=== PATIENT | male | born 1965 | race Caucasian/White ===

== ENCOUNTER → 2023-01-21 10:01 | Outpatient (REF) | payer OTHER, SELFPAY | LOC: RAD 10:01 | PROVIDERS: ATTENDING PHYSICIAN General Practice | DX: K50.019 Crohn's disease of small intestine with unspecified complications (principal) | CPT/HCPCS: 74177; Q9967 ==

== ENCOUNTER 2023-04-20 12:11 | Emergency (ER) | payer SELFPAY ==
[2023-04-20 12:18] VITALS: BP 179/100; BMI 28.3
[2023-04-20 13:27] LABS: Amphetamines Negative (Negative); Barbiturates Negative (Negative); Benzodiazepines Negative (Negative); Buprenorphine Negative (Negative); Cocaine Negative (Negative); Marijuana Negative (Negative); Methadone Negative (Negative); Methamphetamines Negative (Negative); Opiates Negative (Negative); Phencyclidine Negative (Negative); Tricyclic Antidepressants Negative (Negative)
[2023-04-20] MEDS: LYRICA 200 MG PO ×2 (14:00→22:08)
--- NOTE | 2023-04-20 14:22 | CON.MD ---
Addendum entered and electronically signed by Lien Metz MD 04/20/23 16:20:
addendum to medical hx received information re patient medications from [facility]. he takes tegretol 200 mg bid for neuropathy. folic acid one mg q day latanoprost o.oo5 % one drop right eye q hs loratadine 10 mg daily lyrica 100 mg two tid for
neuropathy pantoprazole 20 mg q day tamsulosin o.4 mg bid tramadol 50 mg two tabs tid prn pain artificial tears . had been on prednisone but no longer taking it for crohn's other prn's astelin artificial tears zoloft dose of 125 given
continuation of depression will increase to 150 mg
Addendum entered and electronically signed by Lien Metz MD 04/20/23 14:32:
asked staff to get a copy of meds from [facility].
Original Note:
Consultation - Medical
-
patient seen chart reviewed. patient is a 57 year old male known to me from previous admissions. he comes to today on a 302 petition filed bc upon release from [facility] he said he would hang himself. he continues to say he will 'perez myselr'.
he is depressed. he has struggled w several serious medical illnesses. he was in [facility] for about 22 months bc violation of probation. he had charges pertaining to possession of firearms, terroristic threats, resisting arrest etc. he said he was
assured by the top lift compresser who presided over his hearing that he would be released to a 'place'. this did not happen he was dc'ed to the street. he has no place to live. sleep is not great. appetite is fair. there is nothing to suggest psychosis. patient
was taking zoloft. he does not know the dose.
past psych hx patient was hospitalized in the past. please see my note of 04/30/21 for details. he was last at [facility] he has taken several psychotropics in the past. he feels zoloft was helpful last time he was here was bc of an
overdose in a motel after he was dc'ed from [place] to said residence.
medical hx patient w hx spine surgeries and chronic pain. he has difficulty breathing bc spinal deformity. he can barely walk. he has hx of crohn's w complications in the past requiring bowel resection. patient w osteoporosis foot drop. i noted
in my last note hx of hip surgery which he says is not accurate.
social hx has a mother locally. otherwise few friends or supports. patient currently is homeless long legal hx
substance abuse denied said he has hx of substance abuse in the past but none in several ears
family hx non contributory
mse alert ox3 cooperative and given the circumstances pleasant. speech and thought process normal. mood is depressed affect ok thoughts of suicide via hanging aver intelligence memory ok insight judgment poor
dx unspecified depression
plan uphold 302. patient could go voluntarily if we can locate such a bed. restart zoloft 50 mg q day ativan one mg po prn agitation anxiety
[2023-04-20 14:36] LABS: % Basophils 0.6 % (0-2); % Eosinophils 0.4 % (0-6); % Immature Granulocytes 0.2 % (0-0.5); % Lymphocytes 22.1 % (20.5-51.1); % Monocytes 4.7 % (1.7-9.3); Absolute Lymphocytes 1.1 10^3/uL (1.2-3.4); Absolute Monocytes 0.2 10^3/uL (0.1-0.6); Absolute Neutrophils 3.7 10^3/uL (1.4-6.5); Hematocrit 37.8 % (39.0-52.0); Mean Corp Hgb Conc. 34.4 g/dL (33.0-37.0); Mean Corpuscular Hgb 28.5 pg (27.0-31.0); Mean Corpuscular Volume 82.9 fL (80.0-94.0); Mean Platelet Volume 10.6 fL (7.4-10.4); Nucleated Red Blood Cells % 0 % (-); Platelet Count 214 10^3/uL (130-400); Red Blood Cell Count 4.56 10^6/uL (4.70-6.10); Red Cell Dist. Width 13.9 % (11.5-14.5); White Blood Cell Count 5.1 10^3/uL (4.8-10.8)
[2023-04-20 14:51] LABS: COVID-19 Antigen Negative (Negative)
[2023-04-20 14:57] LABS: ALT (SGPT) 13 U/L (0-50); AST (SGOT) 29 U/L (17-59); Albumin 3.7 g/dl (3.5-5.0); Alkaline Phosphatase 108 U/L (38-126); Blood Urea Nitrogen 14 mg/dl (9-20); Carbon Dioxide 26 mmol/L (22-30); Chloride 105 mmol/L (98-107); Estimated Creatinine Clearance 85 ml/min; Glucose 102 mg/dl (70-99); Sodium 136 mmol/L (135-145); Total Bilirubin 0.7 mg/dl (0.2-1.3); Total Protein 6.4 g/dl (6.3-8.2); eGFR > 60.00
[2023-04-20 15:03] LABS: Alcohol None Detected
--- NOTE | 2023-04-20 15:23 | ED.GENMED ---
History of Present Illness
General
Chief Complaint: Crisis Evaluation
Source: patient
Exam Limitations: none
Time Seen by Provider: 04/20/23 12:37
Nursing documentation reviewed up to this point in time: agreed with
Travel History
Have you had any contact with someone who has COVID-19?: No
Do you have any symptoms of coronavirus? Fever > 100 degrees, chills, cough, shortness of breath, sore throat, loss of taste or smell, muscle aches, or headache?: No
History of Present Illness
History of Present Illness:
The patient is a 57-year-old man who reports that he was just released from senior care after 2 years prior to arrival. Patient reports that when he was being released from senior care, he threatened to hang himself because he reports that his life is not
worth living. He reports he has no social support. He reports he has no friends or family. Patient reports that he has a history of overdose and suicide attempt in the past. Patient reports that he is still feeling suicidal. Patient complains
of chronic bilateral foot pain due to neuropathy and states he is due for his Lyrica. He denies drugs and alcohol. He reports he is a former smoker but quit.
Past History
Past History
ED Past Medical History: Psychiatric, Other (Lumbar epidural abscess February 2015, avascular necrosis of the hips, perianal fistula, osteoporosis, gluteal fistula) and Other (Crohn's disease, chronic back pain on the left foot drop, narcotic
dependent. Opiate use disorder.)
ED Past Surgical History: Bowel resection (X2 for Crohn's), Orthopedic (hip replacement, lumbar epidural abscess evacuation with discectomy T10-L3.) and Other (fistula surgery)
Social History
Tobacco: Former smoker
Alcohol: None
Drug: None
Personal: Single
Living: with family
Employment: Disabled
Family History
Family History: Other (Father with lung cancer)
Review of Systems
Review of Systems
Allergies reviewed?: Yes
All Other Systems: ROS reviewed and negative except as documented in HPI and ROS
Constitutional: Reports no symptoms
EENT: Reports no symptoms
Respiratory: Reports no symptoms
Cardiac: Reports no symptoms
ABD/GI: Reports no symptoms
: Reports no symptoms
Musculoskeletal: Reports muscle pain (Bilateral foot pain) and back pain (Chronic back pain)
Skin: Reports no symptoms
Neurological: Reports no symptoms
Endocrine: Reports no symptoms
Hematologic/Lymphatic: Reports no symptoms
Psychiatric: Reports no symptoms
Phy Exam
Physical Exam
Physical Exam:
Physical Exam
General: no apparent distress, not acutely ill
Neck: supple. no meningeal signs. normal posterior pharynx
Heart: s1/s2 regular rate and rhythm, no murmur. equal radial pulses.
Lungs: no acute respiratory distress. clear bilaterally
Abdomen: normal bowel sounds. not tender. no CVAT
Neuro: alert and oriented. no focal neurological deficits
Skin: no rash
Psychiatric: well kept. interactive and cooperative
Extremities: no edema. no calf tenderness. negative homans. good distal pulses
Course
Orders/Labs/Results
Orders:
Orders
04/20/23 12:17
Case Management Consult ONCE
Case Management Consult: Suicide Risk
04/20/23 13:01
Urine Drug Abuse Screen Urgent
Date Specimen was Collected: 04/20/23
Time Specimen was Collected: 12:21
04/20/23 13:09
Pregabalin [Lyrica] 200 mg PO NOW STA
04/20/23 13:10
Crisis Consult Urgent
Reason for Consult: suicidal thoughts
04/20/23 14:28
Alcohol Urgent
COVID-19 Antigen Urgent
Source: Nasal Swab
Complete Blood Count/With Diff Urgent
Comprehensive Metabolic Panel Urgent
04/20/23 14:30
Lorazepam [Ativan] 1 mg PO Q8HPRN PRN
04/20/23 18:00
Latanoprost [Xalatan Ophthalmic Solution] See Dose Instructions OPHTH QPM
04/20/23 20:00
Carbamazepine [Tegretol] 200 mg PO BID
Tamsulosin [Flomax] 0.4 mg PO BID
04/20/23 22:00
Pregabalin [Lyrica] 200 mg PO TID
04/21/23 08:00
Loratadine [Claritin] 10 mg PO DAILY
Pantoprazole [Protonix] 40 mg PO DAILY
Sertraline HCl [Zoloft] 150 mg PO DAILY
Sertraline HCl [Zoloft] 50 mg PO DAILY
Abnormal Lab Results
04/20/23
14:28
RBC 4.56 L 10^6/uL
(4.70-6.10)
Hct 37.8 L %
(39.0-52.0)
MPV 10.6 H fL
(7.4-10.4)
Absolute Lymphs (auto) 1.1 L 10^3/uL
(1.2-3.4)
Glucose 102 H mg/dl
(70-99)
04/20/23 14:28
04/20/23 14:28
Vital Signs
Initial and Last Documented VS:
Initial Vital Signs
Temp Pulse Resp BP Pulse Ox
98.0 F 66 16 179/100 99
04/20/23 12:18 04/20/23 12:18 04/20/23 12:18 04/20/23 12:18 04/20/23 12:18
Last Documented Vital Signs
Temp Pulse Resp BP Pulse Ox
98.0 F 66 16 179/100 99
04/20/23 12:18 04/20/23 12:18 04/20/23 12:18 04/20/23 12:18 04/20/23 12:18
MDM/Problems Addressed
Differential Diagnosis Includes:
Suicidal ideations, psychosis, substance use
MDM/Problems Addressed:
Patient presents with thoughts of suicide and worthlessness
Chronic conditions affecting care: Psychiatric illness
Acute Exacerbation and/or Progression of Chronic Illness: Psychiatric illness
*Pulse Oximetry
Patient hypoxic: no
*Critical Care Note
Total Time (30-74mins, 75-104mins- exclusive of procedures): Not Applicable
Data Reviewed
Review of Other/Old Records Reveals: Discharge Summary (Discharge summary reviewed from May 2021 when patient had metabolic encephalopathy due to an intentional overdose)
Source: patient and previous hospital records
Update Note
Update Note:
4:00 PM patient evaluated by psychiatry and 302 upheld. Awaiting placement
ED Attending Note
-
Portions of this chart may have been created with voice recognition software.� Occasional wrong word or��sound alike� substitutions may have occurred due to the inherent limitations of voice recognition software.
Discharge Plan
Departure
Patient Disposition: Psych Facility
Date of Disposition: 04/20/23
Time of Disposition: 16:08
Patient Status:: 302
Patient with high blood pressure during this ER visit?: Yes
Condition: Critical
Covid-19: Not Applicable
Discharge Problem:
Suicidal ideations
Prescriptions:
No Action
mesalamine [Delzicol] 400 MG capsule (with del rel tablets)
800 mg PO TID
cholecalciferol (vitamin D3) 2,000 UNITS tablet
2,000 units PO DAILY
thiamine HCl (vitamin B1) 100 MG tablet
100 mg PO DAILY 30 Days Qty: 30 0RF
lorazepam 0.5 MG tablet
0.5 mg PO DAILY PRN (Reason: agitation) 3 Days Qty: 3 0RF
folic acid 1 MG tablet
1 mg PO DAILY 30 Days Qty: 30 0RF
sertraline 50 MG tablet
50 mg PO DAILY 30 Days Qty: 30 0RF
melatonin 5 MG tablet
5 mg PO HS Qty: 0 0RF
tamsulosin 0.4 MG capsule
0.4 mg PO DAILY 30 Days Qty: 30 0RF
pantoprazole 40 MG tablet,delayed release (DR/EC)
40 mg PO DAILY 30 Days Qty: 30 0RF
albuterol sulfate 1 PUFF HFA aerosol inhaler
2 puff inhalation Q6HPRN PRN (Reason: SOB) 14 Days Qty: 1 0RF
pregabalin [Lyrica] 300 MG capsule
300 mg PO BID 30 Days Qty: 60 0RF
Referrals:
[facility] [Family Provider] -
Interventions
Interventions:
*Risk Screen - Suicide Last Done: 04/20/23 12:14
*General Assessment Last Done: 04/20/23 12:14
*Neglect/Abuse Screening Last Done: 04/20/23 12:14
*ED COVID-19 Vaccine History Last Done: 04/20/23 12:14
ED-Psychological Assessment Last Done: 04/20/23 12:14
[2023-04-20] MEDS: ATIVAN 1 MG PO (16:15)
[2023-04-20] MEDS: XALATAN OPHTHALMIC SOLUTION 1 DROP OPHTH (20:21)
[2023-04-20] MEDS: FLOMAX 0.400000000000000022 MG PO (20:21)
[2023-04-20] MEDS: TEGRETOL 200 MG PO (20:21)
[2023-04-20] MEDS: ULTRAM 50 MG PO (23:04)
[2023-04-21 00:01] VITALS: BP 146/86
[2023-04-21] MEDS: ATIVAN 1 MG PO ×3 (00:27→16:55)
[2023-04-21] MEDS: LYRICA 200 MG PO ×3 (09:15→21:19)
[2023-04-21] MEDS: CLARITIN 10 MG PO (09:15)
[2023-04-21] MEDS: PROTONIX 40 MG PO (09:16)
[2023-04-21] MEDS: FLOMAX 0.400000000000000022 MG PO ×2 (09:16→20:23)
[2023-04-21] MEDS: ZOLOFT 150 MG PO (09:16)
[2023-04-21] MEDS: TEGRETOL 200 MG PO ×2 (09:17→20:23)
--- NOTE | 2023-04-21 09:22 | EDRN ---
Pt assisted to the BR by this RN. Pt very cooperative and pleasant during interaction.
[2023-04-21 10:53] VITALS: BP 141/84
--- NOTE | 2023-04-21 14:31 | W.PN.UPDATE ---
Update Note
Progress Note Update
patient seen chart reviewed. patient continues to be depressed and threatens to hang himself. thus far we have been unable to secure a psych bed for him. i am pursuing a 303 despite the fact that he says he would go to hospital voluntarily for fear
he will change his mind when he gets frustrated that we cannot find a bed and demand to leave in order to hang himself. he is cooperative he is eating and drinking will continue w current meds. he expressed worry that his mom has . i did get
his mom's phone number but he does not want to call her for fear he will learn she is . she apparently was dx w cancer.
[2023-04-21] MEDS: XALATAN OPHTHALMIC SOLUTION 1 DROP OPHTH (16:52)
[2023-04-21] MEDS: ULTRAM 50 MG PO (17:57)
[2023-04-21] MEDS: OCEAN, SALINE MIST 2 SPRAYS NASAL (21:20)
[2023-04-21 21:41] VITALS: BP 102/61
[2023-04-22 08:29] VITALS: BP 156/90
[2023-04-22] MEDS: PROTONIX 40 MG PO (08:32)
[2023-04-22] MEDS: TEGRETOL 200 MG PO ×2 (08:32→20:24)
[2023-04-22] MEDS: ZOLOFT 150 MG PO (08:33)
[2023-04-22] MEDS: LYRICA 200 MG PO ×3 (08:33→22:23)
[2023-04-22] MEDS: CLARITIN 10 MG PO (08:34)
[2023-04-22] MEDS: FLOMAX 0.400000000000000022 MG PO ×2 (08:34→20:24)
[2023-04-22] MEDS: ATIVAN 1 MG PO ×3 (08:40→22:23)
--- NOTE | 2023-04-22 10:58 | W.PN.UPDATE ---
Update Note
Progress Note Update
patient seen chart reviewed. spoke with nursing and with dr winter. the patient is anxious. he is very very worried about his future. i did speak to senior living personnel and they were not helpful . they admitted they essentially dumped him in the er
as they could not find a placement for him. they said he is off probation ....so they are not obligated to find a home for him. he insists this is not the case. not clear to me how to get the answer to that question but i have some ideas as to
whom to call. he wants more ativan. i agreed to tid one mg but that is the limit. will get tegretol level and optimize dosage. i asked dr winter to see him. he has very legit back pain and may need standing order of tramadol. 1130 is the 302
hearing. he does continue to present a threat to himself via hanging. continue zoloft consider increase to 200 but would wait until next week as we just increased a few days ago. .
[2023-04-22] MEDS: ULTRAM 100 MG PO (15:23)
[2023-04-22] MEDS: XALATAN OPHTHALMIC SOLUTION OPHTH (18:20)
--- NOTE | 2023-04-22 18:21 | EDRN ---
Pt asleep; held evening eye drop for now.
[2023-04-22 20:22] VITALS: BP 126/79
[2023-04-22 22:18] VITALS: BP 123/77
[2023-04-23 06:13] LABS: Tegretol (Carbamazepine) 6.4 ug/ml (4-12)
[2023-04-23] MEDS: ULTRAM 100 MG PO ×3 (06:26→21:14)
[2023-04-23] MEDS: LYRICA 200 MG PO ×3 (08:20→21:14)
[2023-04-23] MEDS: FLOMAX 0.400000000000000022 MG PO ×2 (08:20→21:14)
[2023-04-23] MEDS: CLARITIN 10 MG PO (08:20)
[2023-04-23] MEDS: ATIVAN 1 MG PO ×3 (08:20→21:14)
[2023-04-23] MEDS: ZOLOFT 150 MG PO (08:21)
[2023-04-23] MEDS: PROTONIX 40 MG PO (08:21)
[2023-04-23] MEDS: TEGRETOL 200 MG PO ×2 (08:21→21:14)
[2023-04-23 10:19] VITALS: BP 126/83
--- NOTE | 2023-04-23 11:14 | W.PN.UPDATE ---
Update Note
Progress Note Update
Chart reviewed. Psychiatry follow up. Patient is on a 303 for SI and plan to hang himself. He reports sleeping ok last night and eating some breakfast. He remains depressed and admits to continued SI. States pain is manageable. He is tolerating
medications well without side effects.
04/23 Tegretol level 6.4
MSE- good eye contact. impoverished speech. depressed mood with congruent affect. poverty of thought. suicidal ideations with plan to hang self. Denies HI. Denies AVH. No delusions. Limited insight. Poor judgement
A/P-58 yo male with unspecified depression on a 303. Crisis pursuing inpatient psych placement for safety, stabilization and medication management. Continue zoloft 150mg daily (increased on 04/20), Ativan 1mg TID, Tegretol 200mg BID and Lyrica 200mg
TID.
[2023-04-23] MEDS: XALATAN OPHTHALMIC SOLUTION OPHTH (21:44)
[2023-04-24] MEDS: CLARITIN 10 MG PO (07:21)
[2023-04-24] MEDS: ATIVAN 1 MG PO ×4 (07:21→21:02)
[2023-04-24] MEDS: FLOMAX 0.400000000000000022 MG PO ×2 (07:21→21:02)
[2023-04-24] MEDS: ZOLOFT 150 MG PO (07:22)
[2023-04-24] MEDS: LYRICA 200 MG PO ×3 (07:22→21:02)
[2023-04-24] MEDS: TEGRETOL 200 MG PO ×2 (07:23→21:02)
[2023-04-24] MEDS: PROTONIX 40 MG PO (07:23)
[2023-04-24 07:34] VITALS: BP 116/81
[2023-04-24] MEDS: ULTRAM 100 MG PO (12:22)
--- NOTE | 2023-04-24 17:29 | W.PN.UPDATE ---
Update Note
Progress Note Update
Pt seen today - chart reviewed.
Pt still waiting for a psychiatric bed- is currently on a 303 commitment.
Pt told me that he is angry at the [facility] residential for letting him leave without finding him housing. 'If I don't get somewhere to leave I will hang myself from a tree outside the residential to show the world what the system is really like.' He
also told me that 'if probation comes here to see me there will be a fight.'
He says he is tired of everything, especially his body, his pain. He does not require a wheelchair all the time- he CAN walk, though unsteadily.
Pt with Chronic Pain, hx of depression, and hx of aggression.
Maintain on Zoloft Lyrica Tegretol, and tramadol. Await placement.
[2023-04-24] MEDS: ATIVAN PO (17:38)
[2023-04-24] MEDS: XALATAN OPHTHALMIC SOLUTION 1 DROP OPHTH (17:41)
[2023-04-24 20:57] VITALS: BP 119/66
[2023-04-24] MEDS: ROXICODONE 5 MG PO (23:17)
[2023-04-25] MEDS: ATIVAN 1 MG PO ×3 (07:20→22:11)
[2023-04-25] MEDS: CLARITIN 10 MG PO (07:20)
[2023-04-25] MEDS: TEGRETOL 200 MG PO ×2 (07:20→19:42)
[2023-04-25] MEDS: FLOMAX 0.400000000000000022 MG PO ×2 (07:20→19:42)
[2023-04-25] MEDS: PROTONIX 40 MG PO (07:20)
[2023-04-25] MEDS: LYRICA 200 MG PO ×3 (07:20→22:12)
[2023-04-25] MEDS: ZOLOFT 150 MG PO (07:20)
[2023-04-25] MEDS: MAALOX 40 PO (09:03)
[2023-04-25 11:30] VITALS: BP 118/74
--- NOTE | 2023-04-25 11:48 | EDRN ---
Update from community arts worker was that pt is a 303 and most places reply to request as pt has exhausted what they can offer him though crisis has 2 maybes and will contact [facility] later as this am they had not beds and will evaluate
when a bed comes available.
[2023-04-25] MEDS: ULTRAM 100 MG PO ×2 (13:42→19:42)
--- NOTE | 2023-04-25 16:11 | EDRN ---
Ordered 18:00 medication xalatan eye drops.
--- NOTE | 2023-04-25 16:36 | ED.ADDNOTE ---
ED Addendum
ED Addendum
ED Addendum Note:
Patient requesting that we adjust his Ultram order�apparently takes 100 mg 3 times daily at home for chronic back pain and is currently ordered every 6 hours as needed. He says he forgets to ask for it and then ends up having significant pain as a
result. He requested that we changed to scheduled 3 times daily as he takes at home. Adjustment made.
[2023-04-25] MEDS: XALATAN OPHTHALMIC SOLUTION 1 DROP OPHTH (17:58)
--- NOTE | 2023-04-25 18:30 | EDRN ---
Pt looking at me w/ arms crossed and angry look on his face at this time. This RN asked pt if he needed something and he complained of R hip pain and this RN TT'd Dr. José.
--- NOTE | 2023-04-25 18:30 | EDRN ---
Pt complained about pain in his R hip and requested an MD to see him for his pain.
[2023-04-25 20:00] VITALS: BP 141/77
[2023-04-26] MEDS: ULTRAM 100 MG PO ×4 (01:13→18:43)
[2023-04-26] MEDS: ATIVAN 1 MG PO ×4 (01:27→23:17)
--- NOTE | 2023-04-26 05:00 | EDRN ---
Pt sleeping,security outside room,TV on,pt self positioning.
[2023-04-26 07:23] VITALS: BP 124/78
[2023-04-26] MEDS: ZOLOFT 150 MG PO (08:04)
[2023-04-26] MEDS: LYRICA 200 MG PO ×3 (08:05→23:17)
[2023-04-26] MEDS: TEGRETOL 200 MG PO ×2 (08:05→20:13)
[2023-04-26] MEDS: PROTONIX 40 MG PO (08:06)
[2023-04-26] MEDS: FLOMAX 0.400000000000000022 MG PO ×2 (08:06→20:13)
[2023-04-26] MEDS: CLARITIN 10 MG PO (08:06)
[2023-04-26] MEDS: MAALOX 40 PO (09:51)
--- NOTE | 2023-04-26 10:56 | W.PN.UPDATE ---
Update Note
Progress Note Update
Pt seen, sitting up on side of livia, eating breakfast, buttering his toast. Pt c/o feeling hopeless, states he has nothing, no work/disabled, no family. Pt states he is depressed and angry about what people did to him. He reports ongoing SI
with plan, states he was banging his head earlier. Pt alert, calm, cooperative, with no signs of psychosis. Pt taking medications.
Imp: Unspecified depressive d/o, on 303, continues to report SI
Rec: continue effort to place in inpatient psych facility on 303
continue antidepressant medication
[2023-04-26] MEDS: XALATAN OPHTHALMIC SOLUTION 1 DROP OPHTH (20:05)
[2023-04-26 21:07] VITALS: BP 127/80
[2023-04-27] MEDS: ULTRAM 100 MG PO ×4 (00:54→20:42)
--- NOTE | 2023-04-27 04:20 | DOWNTIME ---
There was a [employer] Client Manager Pathology Downtime on 04/27/2023 from 0111 to 04/27/2023 at 0405. Downtime documentation of patient's care, including medication administrations, has been reconciled in the electronic record per guidelines. Refer to the
patient's paper chart under the miscellaneous tab to see printed paper medication records and downtime forms.
[2023-04-27] MEDS: CLARITIN 10 MG PO (08:01)
[2023-04-27] MEDS: FLOMAX 0.400000000000000022 MG PO ×2 (08:02→20:41)
[2023-04-27] MEDS: PROTONIX 40 MG PO (08:02)
[2023-04-27] MEDS: TEGRETOL 200 MG PO ×2 (08:02→20:42)
[2023-04-27] MEDS: ZOLOFT 150 MG PO (08:02)
[2023-04-27] MEDS: LYRICA 200 MG PO ×3 (08:02→22:53)
[2023-04-27] MEDS: ATIVAN 1 MG PO ×3 (08:09→22:53)
[2023-04-27 09:40] VITALS: BP 134/84
[2023-04-27] MEDS: MAALOX 50 PO (09:53)
--- NOTE | 2023-04-27 15:01 | W.PN.UPDATE ---
Update Note
Progress Note Update
patient seen chart reviewed. mr nayan remains here bc no hospital is willing to accept him. discussed w him that [facility] did accept him but rescinded when they learned he had 'no collections analyst'. he does need help w showering dressing etc. he also said
the skilled nursing dr refused to sign off on his need for a collections analyst. i would be willing to do that if PT recommends it. discussed with dr carter having PT see him to determine exactly what his physical needs are. also asked dr carter to do a case mgt
referral. he needs his insurances and his disability income reinstated for placement. it is my impression that the skilled nursing should have done this prior to releasing him. did not make any changes in his meds at this point.
[2023-04-27 15:47] VITALS: BP 134/84; PULSE 64
[2023-04-27] MEDS: MAALOX 30 PO (17:18)
[2023-04-27] MEDS: XALATAN OPHTHALMIC SOLUTION 1 DROP OPHTH (20:42)
[2023-04-27 21:18] VITALS: BP 127/80
[2023-04-28] MEDS: ULTRAM PO (06:19)
--- NOTE | 2023-04-28 08:44 | CM ---
CM received consult for insurance options. CM left requesting [facility] to visit patient. Patient had MC and disability in the past however, patient no longer has active MC per chart review. CM spoke with Crisis and they agreed to look for MC number
and CM will call to Medicare to clarify patient standing.
[2023-04-28] MEDS: CLARITIN 10 MG PO (08:50)
[2023-04-28] MEDS: FLOMAX 0.400000000000000022 MG PO ×2 (08:51→21:22)
[2023-04-28] MEDS: ATIVAN 1 MG PO ×3 (08:51→22:45)
[2023-04-28] MEDS: ULTRAM 100 MG PO ×3 (08:52→21:22)
[2023-04-28] MEDS: LYRICA 200 MG PO ×3 (08:53→22:45)
[2023-04-28] MEDS: PROTONIX 40 MG PO (08:53)
[2023-04-28] MEDS: TEGRETOL 200 MG PO ×2 (08:53→21:22)
[2023-04-28] MEDS: ZOLOFT 150 MG PO (08:54)
[2023-04-28 12:15] VITALS: BP 144/85
--- NOTE | 2023-04-28 14:36 | CM ---
CM asked to explore options for insurance for patient. Patient has part A per [facility] [id number]. Patient per chart review indicated that in the past he had disability but does not have coverage any longer. Per chart review, discussion with
psychiatry patient does not have any income currently. CM requested [facility] to assist with MA application and left for [employer] sales representative printing. Patient was in skilled nursing and discharged recently not on Probation per current record. Patient was possible for
admission to [facility] per psych discussion with skilled nursing if able to have an aide. [facility] contacted by CM but no record of patient on waiting list per admissions. [facility] to sent CM an application for their facility.
CM reached out to [facility] to see if they were able to access information on applying for home waivers for aide services and await response.
Plan; pending Crisis
--- NOTE | 2023-04-28 14:54 | W.PN.UPDATE ---
Update Note
Progress Note Update
patient seen chart reviewed. mr spicer continues to be cooperative but on the other hand maintains he cannot be safe if discharged to the street. hence we are trying to help find him a disposition. ms tobar from has been helping to get his
insurance/disability in order to provide him whatever services he needs. there is some conflicting info from the shelter....they say [facility] had accepted him but he did not have a oracle technical developer to help w adl's ; [facility] says they have never heard
of him. ms tobar called the [facility] to see if we could expedite the waver to get him a oracle technical developer but we wanted to find out if [facility] might then accept him. PT has opined that he needs a oracle technical developer to help w adl's and PT will be working with him 3x
weekly. will continue to follow
[2023-04-28] MEDS: XALATAN OPHTHALMIC SOLUTION 1 DROP OPHTH (17:30)
[2023-04-28 22:48] VITALS: BP 141/83
[2023-04-29] MEDS: ULTRAM PO (02:13)
[2023-04-29 08:36] VITALS: BP 130/86
[2023-04-29] MEDS: TEGRETOL 200 MG PO ×2 (08:39→19:10)
[2023-04-29] MEDS: ULTRAM 100 MG PO ×3 (08:39→19:08)
[2023-04-29] MEDS: LYRICA 200 MG PO ×3 (08:40→21:51)
[2023-04-29] MEDS: PROTONIX 40 MG PO (08:40)
[2023-04-29] MEDS: FLOMAX 0.400000000000000022 MG PO ×2 (08:40→19:09)
[2023-04-29] MEDS: CLARITIN 10 MG PO (08:40)
[2023-04-29] MEDS: ATIVAN 1 MG PO ×3 (08:41→21:51)
[2023-04-29] MEDS: ZOLOFT 150 MG PO (08:41)
--- NOTE | 2023-04-29 10:53 | W.PN.UPDATE ---
Update Note
Progress Note Update
mr spicer remains cooperative and pleasant. at this point his physical needs (back pain, weakness) outweigh his psych concerns. spoke to ms sebastian de los santos re possibility of shelter facility for him as he is impaired vis a vis ability to care
for self on a consistent basis. see PT note. she will look into the situation. no changes made in psychiatric medications at this point.
--- NOTE | 2023-04-29 11:13 | CM ---
Addendum entered by Jessica Walter RN 04/29/23 16:02:
CM was left a VM by Oneida Latif. She advised that [facility] is willing to prioritize patient for a waiver assessment. CM left message for Rosa Maria Brown at [facility] to schedule assessment. Patient was deemed SNF level of care in 2021, but application will
need to be reassessed.
Original Note:
Cm reviewed medical records. CM spoke with director to get update on currently discharge planning progress. CM spoke with Oneida Latif and she plans to assist with discharge planning. She will call [facility] for assistance
with possible waivers. CM will await update on plan with Oneida. CM updated Dr. Metz and she feels that SNF may be appropriate for patient as he does require 24 hour assistance. CM will await update by Oneida prior to further SNF planning.
[2023-04-29] MEDS: XALATAN OPHTHALMIC SOLUTION 1 DROP OPHTH (17:17)
[2023-04-29 21:50] VITALS: BP 148/93
[2023-04-30] MEDS: ULTRAM 100 MG PO ×4 (00:35→19:56)
[2023-04-30] MEDS: ATIVAN 1 MG PO ×4 (00:35→21:33)
[2023-04-30 00:57] VITALS: BP 129/95
--- NOTE | 2023-04-30 00:58 | EDRN ---
At 00:25, pt. opened his door and told security, 'I feel so tired of this, I am going to bash my head, can you get the nurse?'. RN to bedside, attempted to calm and redirect pt. w/ therapeutic communication, pt. reports feels agitated and feels as
if he needs medication. RN spoke w/ ED attending, pt. medicated per MAR orders. Pt. more calm, contracts for safety.
--- NOTE | 2023-04-30 02:41 | EDRN ---
Security called RN to bedside as pt. had flipped over his side tray table and was agitated. Security removed table from bedside. When RN entered pt.'s room, pt. was crying, tearful, stating 'I just don't know what to do. I'm tired. I'm mentally
tired. I've never felt like this before'. RN listened to pt., offered therapeutic support. RN asked pt. what coping skills he likes to utilize, pt. reports enjoying classic rock music, RN and security set up speaker outside pt.'s room so he can hear
rock music, pt. more calm and cooperative.
[2023-04-30] MEDS: ZOLOFT 150 MG PO (08:49)
[2023-04-30] MEDS: CLARITIN 10 MG PO (08:49)
[2023-04-30] MEDS: TEGRETOL 200 MG PO ×2 (08:49→19:57)
[2023-04-30] MEDS: LYRICA 200 MG PO ×3 (08:49→21:32)
[2023-04-30] MEDS: FLOMAX 0.400000000000000022 MG PO ×2 (08:49→19:56)
[2023-04-30] MEDS: PROTONIX 40 MG PO (08:49)
--- NOTE | 2023-04-30 13:30 | W.PN.UPDATE ---
Update Note
Progress Note Update
Pt seen, chart reviewed. Pt resting in gurney after eating lunch. Pt states he feels 'tired' of 'all the bull-s__t' and 'lying.' He complains that Probation should have set him up with a place to go.
Affect appears unchanged, mildly dysphoric and irritable.
Imp: Unspecified depressive d/o, on 303
Rec:� continue placement effort
� � � continue antidepressant medication
will follow
--- NOTE | 2023-04-30 14:15 | CM ---
Addendum entered by Jessica Walter RN 04/30/23 14:18:
Rosa Maria Brown
[phone]
CM left message for Rosa Maria to contact [facility] crisis workers directly to schedule assessment.
Original Note:
CM updated [facility] that Rosa Maria Brown from [facility] will be following up with them to schedule a waiver assessment.
CM advised crisis workers that SNF may not be a realistic options as patient's behaviors are recently violent and requiring frequent nursing interventions. CM encourage continued plan to work with Nalini Young and [facility] for waiver services for a 24
hour aid.
[2023-04-30] MEDS: XALATAN OPHTHALMIC SOLUTION 1 DROP OPHTH (18:44)
[2023-04-30 18:56] VITALS: BP 118/77
[2023-04-30] MEDS: MELATONIN 5 MG PO (21:32)
[2023-05-01] MEDS: ULTRAM 100 MG PO ×4 (01:37→19:15)
[2023-05-01 08:50] VITALS: BP 134/82
[2023-05-01] MEDS: ZOLOFT 150 MG PO (08:52)
[2023-05-01] MEDS: CLARITIN 10 MG PO (08:52)
[2023-05-01] MEDS: FLOMAX 0.400000000000000022 MG PO ×2 (08:52→19:16)
[2023-05-01] MEDS: PROTONIX 40 MG PO (08:53)
[2023-05-01] MEDS: TEGRETOL 200 MG PO ×2 (08:53→19:16)
[2023-05-01] MEDS: LYRICA 200 MG PO ×3 (08:53→21:58)
[2023-05-01] MEDS: ATIVAN 1 MG PO ×3 (08:53→21:57)
--- NOTE | 2023-05-01 11:40 | W.PN.UPDATE ---
Update Note
Progress Note Update
Pt seen, alert, oriented, resting across gurney watching TV. Affect cont's to be dysphoric; pt states he wakes up each morning feeling like someone beat him up overnight due to back pain. Pt states he needs a fourth surgery to help him straighten
up and be able to walk well; had previous back surgery at [facility] in [facility]. Pt c/o feeling 'tired'/hopeless otherwise, states nothing to do/ no purpose. Pt compliant with meds, no apparent side effects. Pt was given melatonin last night for
insomnia. CM involved, working with [facility] for possible waiver services for a 24 hour aid to facilitate placement.
Imp: Unspecified depressive d/o, on 303
Rec:� continue placement effort
� � � continue antidepressant medication
� � will follow
[2023-05-01 18:10] VITALS: BP 134/76
[2023-05-01] MEDS: XALATAN OPHTHALMIC SOLUTION 1 DROP OPHTH (19:15)
[2023-05-01] MEDS: MELATONIN 5 MG PO (21:57)
[2023-05-01 23:45] VITALS: BP 125/80
[2023-05-02] MEDS: ULTRAM 100 MG PO ×4 (01:32→18:12)
[2023-05-02 07:37] VITALS: BP 123/81
[2023-05-02] MEDS: FLOMAX 0.400000000000000022 MG PO ×2 (07:40→20:44)
[2023-05-02] MEDS: ZOLOFT 150 MG PO (07:40)
[2023-05-02] MEDS: ATIVAN 1 MG PO ×3 (07:41→20:44)
[2023-05-02] MEDS: PROTONIX 40 MG PO (07:41)
[2023-05-02] MEDS: TEGRETOL 200 MG PO ×2 (07:42→20:44)
[2023-05-02] MEDS: LYRICA 200 MG PO ×3 (07:42→22:11)
[2023-05-02] MEDS: CLARITIN 10 MG PO (07:42)
--- NOTE | 2023-05-02 12:54 | EDRN ---
Pt in BR at this time.
--- NOTE | 2023-05-02 13:55 | W.PN.UPDATE ---
Update Note
Progress Note Update
Pt seen, alert, reclining in stretcher, conversing/making jokes. Pt talked about his goals to get a place to live, then get back surgery, then get his teeth fixed. Compliant with medications, with no apparent side effects. Appetite good. Pt c/o
feeling down/hopeless when asked. He talks about filing various law suits to get money to live on.
Imp: Unspecified depressive d/o, on 303
Rec:� continue placement effort, AAA noted to be involved
� � � continue antidepressant medication
� � will follow
[2023-05-02 16:00] VITALS: BP 134/88
[2023-05-02] MEDS: XALATAN OPHTHALMIC SOLUTION 1 DROP OPHTH (18:11)
[2023-05-02] MEDS: ATIVAN 2 MG PO (18:19)
--- NOTE | 2023-05-02 18:22 | EDRN ---
Pt getting very agitated per his own admission and ideas of violence and aggression being expressed. THis RN spoke to Dr. Payton who verbally ordered 2 mg of ativan at this time and it was given.
[2023-05-02 20:46] VITALS: BP 161/99
[2023-05-02] MEDS: MELATONIN 5 MG PO (22:16)
[2023-05-03] MEDS: ULTRAM 100 MG PO ×4 (01:33→19:13)
[2023-05-03 01:38] VITALS: BP 114/75
[2023-05-03] MEDS: ATIVAN 1 MG PO ×3 (08:01→21:37)
[2023-05-03] MEDS: ZOLOFT 150 MG PO (08:01)
[2023-05-03] MEDS: CLARITIN 10 MG PO (08:01)
[2023-05-03 08:02] VITALS: BP 136/71
[2023-05-03] MEDS: LYRICA 200 MG PO ×3 (08:02→21:37)
[2023-05-03] MEDS: PROTONIX 40 MG PO (08:02)
[2023-05-03] MEDS: TEGRETOL 200 MG PO ×2 (08:03→19:58)
[2023-05-03] MEDS: FLOMAX 0.400000000000000022 MG PO ×2 (08:03→19:58)
--- NOTE | 2023-05-03 08:10 | EDRN ---
this RN entered the pts room and the pt was compliant with this RN obtaining vital signs, and the pt was cooperative with taking morning medications, the pt is pleasant, calm, and cooperative, mental health security shift manager stated to this RN that
breakfast was ordered for the pt, the pt is resting in stretcher in the lowest position, side rails up x1, HOB elevated, no s/s of distress, will continue to monitor the pt closely
[2023-05-03 09:36] VITALS: BP 121/86
--- NOTE | 2023-05-03 14:09 | W.PN.UPDATE ---
Update Note
Progress Note Update
Pt seen, resting on stretcher, continues to c/o feeling 'tired' with dysphoric affect. No overall change. No active SI evident, but expresses pessimism.
Imp: Unspecified depressive d/o, on 303
Rec:� continue placement effort, BC AAA noted to be involved
� � � continue antidepressant medication
� � will follow
[2023-05-03 15:35] VITALS: BP 120/78
--- NOTE | 2023-05-03 16:29 | CM ---
Multiple conversations throughout day with CM Director Karen Moreno
Pt has Medicare Part A & B, also has income stream of $1100/month
Crisis continues to follow pt for inpatient psych placement
Awaiting direction regarding if level II assessment should be requested for LT SNF placement
CM Director coordinating dc planning with Oneida Latif
Still determining appropriateness of SNF placement vs psych
CM will continue to be available to assist with dc planning
--- NOTE | 2023-05-03 17:55 | EDRN ---
Patient angry that the psychiatrist has not been into see him yet. Explained to him that he responded earlier that he was seeing patients in the hospital. Patient stated 'What do I need to do to get juiced up like her? Do I have to go into the
bathroom and start crying hysterically and bite myself? You know I can start throwing things around also if that would work.' Explained to the patient that if he starts to act in a threatening manner that he too could possibly be put into
restraints for safety. Patient stated 'Well at least I would get juiced up with more Ativan.' Explained to patient that he becomes aggressive it will be up to the ED physician to medicate you and it might not be with Ativan.' and ED
charge nurse aware.
[2023-05-03] MEDS: XALATAN OPHTHALMIC SOLUTION 1 DROP OPHTH (18:38)
[2023-05-03 19:10] VITALS: BP 121/77
[2023-05-04] MEDS: ULTRAM 100 MG PO ×4 (01:47→20:13)
[2023-05-04] MEDS: PROTONIX 40 MG PO (09:14)
[2023-05-04] MEDS: ZOLOFT 150 MG PO (09:14)
[2023-05-04] MEDS: CLARITIN 10 MG PO (09:14)
[2023-05-04] MEDS: TEGRETOL 200 MG PO ×2 (09:15→20:14)
[2023-05-04] MEDS: FLOMAX 0.400000000000000022 MG PO ×2 (09:16→20:14)
[2023-05-04] MEDS: ATIVAN 1 MG PO ×3 (09:16→21:49)
[2023-05-04] MEDS: LYRICA 200 MG PO ×3 (09:16→21:49)
--- NOTE | 2023-05-04 10:11 | CM ---
Addendum entered by Jessica Walter RN 05/04/23 15:03:
[facility] are considering.
The following facilities have declined:
[facility] [place]
Addendum entered by Jessica Walter RN 05/04/23 11:04:
[facility] unable to accept patient.
Addendum entered by Jessica Walter RN 05/04/23 11:01:
[facility] cannot accept.
Addendum entered by Jessica Walter RN 05/04/23 10:58:
CM added the following SNF to bed search:
[facility]
Addendum entered by Jessica Walter RN 05/04/23 10:50:
Facilities that have declined patient:
[facility] [place]
[facility]
Addendum entered by Jessica Walter RN 05/04/23 10:48:
CM emailed Level II request to Shanta Betancourt at [facility] to initiate evaluation.
Original Note:
Cm spoke with patient and he is agreeable to SNF. CM advised patient that finding an accepting SNF would be difficult due to his psychiatric and criminal history. Patient stated that he understood, but would be willing to go to SNF. He requested
that he be updated as the process proceeds.
CM sent referrals via [facility] to:
[facility]
[2023-05-04 10:36] VITALS: BP 164/96
--- NOTE | 2023-05-04 14:44 | ED.CRISIS ---
ED Crisis Note
ED Crisis Note
Subjective:
Patient complains of back pain and depression
Objective:
Sitting in bed comfortably. No acute distress
Assessment/Plan:
Patient initially brought in for suicidal thoughts and depression. Patient seen by crisis and psychiatry and cleared from psychiatry. His depression appears to be situational in regards to chronic back pain and homelessness. sr. manager marketing involved
and working on short-term placement. Patient states he has plans to follow-up with his spine surgeon to discuss surgery.
--- NOTE | 2023-05-04 16:01 | W.PN.UPDATE ---
Update Note
Progress Note Update
patient seen chart reviewed. spoke with dr prater and with cm ms de los santos. not much guide changer weekend. patient remains homeless. he is uncomfortable given back issues and the reality that he is i a rather uncomfortable guerny. suggested he might
consider sitting in a chair but he says that is not comfortable. asked dr prater to see him to consider whether there is anything that might help w his back discomfort. cm is hoping that an snf will take him and he might then deal w back issues in
the community. he says he has been told he needs surgery. did not change psych medications.
[2023-05-04] MEDS: PERCOCET 5/325 1 TABLET PO (16:39)
[2023-05-04] MEDS: XALATAN OPHTHALMIC SOLUTION 1 DROP OPHTH (18:28)
[2023-05-05] MEDS: ULTRAM PO (03:37)
[2023-05-05 08:00] VITALS: BP 117/76
[2023-05-05] MEDS: ZOLOFT 150 MG PO (08:05)
[2023-05-05] MEDS: CLARITIN 10 MG PO (08:05)
[2023-05-05] MEDS: TEGRETOL 200 MG PO ×2 (08:05→19:36)
[2023-05-05] MEDS: FLOMAX 0.400000000000000022 MG PO ×2 (08:05→19:36)
[2023-05-05] MEDS: ULTRAM 100 MG PO ×3 (08:06→19:35)
[2023-05-05] MEDS: ATIVAN 1 MG PO ×3 (08:06→22:38)
[2023-05-05] MEDS: LYRICA 200 MG PO ×3 (08:06→22:37)
[2023-05-05] MEDS: PROTONIX 40 MG PO (08:06)
--- NOTE | 2023-05-05 08:22 | CM ---
Addendum entered by Jessica Walter RN 05/05/23 14:14:
Mal Polanco from [facility] on aging for Level II evaluation.
Addendum entered by Jessica Walter RN 05/05/23 13:16:
[facility] [place] has declined.
Addendum entered by Jessica Walter RN 05/05/23 11:21:
[place] has declined
Addendum entered by Jessica Walter RN 05/05/23 09:19:
CM left message for [facility] admission coordinator.
CM left message for [facility] admission coordinator.
Original Note:
CM contacted Janes Vieira and Rubin joe for acceptance feedback.
--- NOTE | 2023-05-05 11:00 | W.PN.UPDATE ---
Addendum entered and electronically signed by Lien Metz MD 05/05/23 14:24:
patient does not require one to one supervision.
Original Note:
Update Note
Progress Note Update
patient seen chart reviewed. 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 spoke to case mgt. she has applied to more than a dozen nursing homes for a bed for him but so far he is being rejected bc of his legal hx. he has been cooperative
here and there are not concerns about his behavior. no changes made in his meds. he is in discomfort from his back which he says will need surgery in the future. receiving tramadol
[2023-05-05] MEDS: XALATAN OPHTHALMIC SOLUTION 1 DROP OPHTH (18:38)
[2023-05-06] MEDS: ULTRAM PO (01:45)
[2023-05-06 06:54] VITALS: BP 125/79
[2023-05-06] MEDS: FLOMAX 0.400000000000000022 MG PO ×2 (08:02→19:04)
[2023-05-06] MEDS: ULTRAM 100 MG PO ×3 (08:02→19:04)
[2023-05-06] MEDS: LYRICA 200 MG PO ×3 (08:03→21:34)
[2023-05-06] MEDS: ZOLOFT 150 MG PO (08:03)
[2023-05-06] MEDS: PROTONIX 40 MG PO (08:04)
[2023-05-06] MEDS: CLARITIN 10 MG PO (08:04)
[2023-05-06] MEDS: ATIVAN 1 MG PO ×3 (08:04→21:34)
[2023-05-06] MEDS: TEGRETOL 200 MG PO ×2 (08:05→19:04)
[2023-05-06] MEDS: XALATAN OPHTHALMIC SOLUTION 1 DROP OPHTH (19:04)
[2023-05-06 19:08] VITALS: BP 122/74
[2023-05-07] MEDS: ULTRAM 100 MG PO ×4 (00:44→20:27)
[2023-05-07] MEDS: CLARITIN 10 MG PO (08:12)
[2023-05-07] MEDS: PROTONIX 40 MG PO (08:12)
[2023-05-07] MEDS: LYRICA 200 MG PO ×3 (08:13→21:30)
[2023-05-07] MEDS: ATIVAN 1 MG PO ×3 (08:13→21:31)
[2023-05-07] MEDS: ZOLOFT 150 MG PO (08:14)
[2023-05-07] MEDS: TEGRETOL 200 MG PO ×2 (08:15→20:28)
[2023-05-07 08:17] VITALS: BP 134/98
[2023-05-07] MEDS: FLOMAX 0.400000000000000022 MG PO ×2 (08:39→20:28)
--- NOTE | 2023-05-07 14:06 | W.PN.UPDATE ---
Update Note
Progress Note Update
Chart reviewed, pt. seen. 58 y/o man with very stooped posture seen in his room. Admitted 04/20/23 and awaiting placement. He is on 303 -- difficult to place. He has a long history which he tried to explain to me. He has Crohn's Disease,
multiple spine surgeries and was detoxed from opioids at [place]. Had been incarcertated several times. Most recently, upon his release from snf, ,said he would hang himself over a sign that said, 'This is [facility] to people.' He
had apparently been promised by the juvenile court judge he would have a place to live but was being discharged to the street.
He last spoke to his mother 2 years ago, has siblings. Had a girlfriend. Her son called the police on him, but pt. is vague as to why. At one point he was accused of having barracaded himself with a gun and the SWAT team was involved.
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
He is alert, pleasant and cooperative. seems to selectively give information. Affect is full; is not in distress. No evidence of current mounika or psychosis. He is taking Tegretol for pain, Zoloft 150 mg. for depression and Ativan. BP 137/98;
P72.
Will continue medications unchanged.
[2023-05-07] MEDS: XALATAN OPHTHALMIC SOLUTION 1 DROP OPHTH (20:27)
[2023-05-07 20:36] VITALS: BP 107/76
[2023-05-08] MEDS: ULTRAM 100 MG PO ×4 (01:36→18:36)
[2023-05-08] MEDS: FLOMAX 0.400000000000000022 MG PO ×2 (07:11→20:02)
[2023-05-08] MEDS: CLARITIN 10 MG PO (07:11)
[2023-05-08] MEDS: ATIVAN 1 MG PO ×3 (07:11→21:23)
[2023-05-08] MEDS: LYRICA 200 MG PO ×3 (07:12→21:23)
[2023-05-08] MEDS: TEGRETOL 200 MG PO ×2 (07:13→20:02)
[2023-05-08] MEDS: ZOLOFT 150 MG PO (07:13)
[2023-05-08] MEDS: PROTONIX 40 MG PO (07:13)
[2023-05-08 07:17] VITALS: BP 119/86
--- NOTE | 2023-05-08 11:06 | W.PN.UPDATE ---
Update Note
Progress Note Update
58 y/o man on 303 after threatening to hang himself seen for follow-up. Spoke to him extensively yesterday. He is alert. Asked me the day of the week (Tuesday) thinking it might have been Tuesday. Otherwise, fully alert and oriented. Pleasant.
Slept well. Eating well. Somewhat sarcastic. Not suicidal now, but hinted he would be if circumstances were different (perhaps manipulatively). Speech is clear and goal-directed. Very pleasant. No signs of psychosis. No change in mediations.
Psychiatry will continue to follow until discharged.
[2023-05-08] MEDS: XALATAN OPHTHALMIC SOLUTION 1 DROP OPHTH (18:36)
--- NOTE | 2023-05-08 19:00 | EDRN ---
Report received, patient resting comfortably, helped put music on for patient on tv, no further complaints
[2023-05-08 20:12] VITALS: BP 143/87
--- NOTE | 2023-05-08 23:00 | EDRN ---
Patient watching tv, resting comfortably, no further complaints at this time.
[2023-05-09] MEDS: ULTRAM 100 MG PO ×4 (01:09→20:21)
--- NOTE | 2023-05-09 02:00 | EDRN ---
patient is sleeping at this time.
[2023-05-09] MEDS: CLARITIN 10 MG PO (09:23)
[2023-05-09] MEDS: FLOMAX 0.400000000000000022 MG PO ×2 (09:24→20:21)
[2023-05-09] MEDS: ZOLOFT 150 MG PO (09:24)
[2023-05-09] MEDS: PROTONIX 40 MG PO (09:24)
[2023-05-09] MEDS: ATIVAN 1 MG PO ×3 (09:24→22:12)
[2023-05-09 09:25] VITALS: BP 137/75
[2023-05-09] MEDS: TEGRETOL 200 MG PO ×2 (09:26→20:21)
[2023-05-09] MEDS: LYRICA 200 MG PO ×3 (09:26→22:12)
--- NOTE | 2023-05-09 13:21 | W.PN.UPDATE ---
Update Note
Progress Note Update
Pt seen, record reviewed. Pt appears unchanged, continues to complain about Probation not doing what they were supposed to, states they are hypocritical 'do as I say, not as I do.' Pt able to joke, affect stable. He c/o intermittent heartburn,
takes Protonix. Appetite remains good.
Imp: Unspecified depressive d/o, on 303 commitment. Does not present grounds for further extension of commitment
Rec:� continue placement effort, [place] AAA noted to be involved
� � � continue antidepressant medication
� � will follow
[2023-05-09] MEDS: XALATAN OPHTHALMIC SOLUTION 1 DROP OPHTH (19:07)
[2023-05-09 21:26] VITALS: BP 168/96
[2023-05-10] MEDS: ULTRAM PO (02:10)
[2023-05-10] MEDS: ATIVAN 1 MG PO ×4 (05:15→22:41)
[2023-05-10] MEDS: ULTRAM 100 MG PO ×3 (09:01→19:53)
[2023-05-10] MEDS: ZOLOFT 150 MG PO (09:01)
[2023-05-10] MEDS: PROTONIX 40 MG PO (09:02)
[2023-05-10] MEDS: FLOMAX 0.400000000000000022 MG PO ×2 (09:02→19:53)
[2023-05-10] MEDS: TEGRETOL 200 MG PO ×2 (09:04→19:53)
[2023-05-10] MEDS: LYRICA 200 MG PO ×3 (09:05→22:41)
[2023-05-10] MEDS: CLARITIN 10 MG PO (09:06)
[2023-05-10 09:07] VITALS: BP 135/81
--- NOTE | 2023-05-10 13:54 | W.PN.UPDATE ---
Update Note
Progress Note Update
Pt seen, lying on stretcher, sleeping/resting quietly. Earlier, pt was upset due to being moved to seclusion room from regular ER bed, did not like the change, pushed items off tray. Pt's mental status overall unchanged; no active SI. No signs of
psychosis. Continues to project responsibility for his situation onto others. Crisis and Case Mgt continue to work on placement options, with involvement of the [place].
Imp: Unspecified depressive d/o, on 303 commitment (expires on 05/12/23). Does not present grounds for further extension of commitment
Rec:� continue placement effort, BC AAA noted to be involved
� � � continue antidepressant medication. Pt does not appear to require 1:1 supervision at present
� � will follow
[2023-05-10 18:13] VITALS: BP 128/72
[2023-05-10] MEDS: XALATAN OPHTHALMIC SOLUTION 1 DROP OPHTH (19:00)
[2023-05-11] MEDS: ULTRAM PO (01:27)
[2023-05-11] MEDS: TEGRETOL 200 MG PO ×2 (08:09→20:26)
[2023-05-11] MEDS: ULTRAM 100 MG PO ×3 (08:09→20:29)
[2023-05-11] MEDS: ATIVAN 1 MG PO ×3 (08:10→22:25)
[2023-05-11] MEDS: CLARITIN 10 MG PO (08:10)
[2023-05-11] MEDS: FLOMAX 0.400000000000000022 MG PO ×2 (08:11→20:26)
[2023-05-11] MEDS: PROTONIX 40 MG PO (08:13)
[2023-05-11] MEDS: LYRICA 200 MG PO ×3 (08:16→22:25)
[2023-05-11] MEDS: ZOLOFT 150 MG PO (08:16)
[2023-05-11 15:20] VITALS: BP 105/65
--- NOTE | 2023-05-11 15:30 | W.PN.UPDATE ---
Update Note
Progress Note Update
chart reviewed. spoke with nursing and crisis staff. mr nayan is much the same. he is arguing about spacing of ativan. can give tid spaced as he prefers but not to exceed total three mg daily. there is possibility if we can reactivate his MA we can
get him into [facility].
[2023-05-11] MEDS: XALATAN OPHTHALMIC SOLUTION 1 DROP OPHTH (19:15)
[2023-05-12 01:01] VITALS: BP 141/102
[2023-05-12] MEDS: ULTRAM 100 MG PO ×4 (01:19→19:21)
[2023-05-12] MEDS: ATIVAN 1 MG PO ×3 (08:41→21:17)
[2023-05-12] MEDS: FLOMAX 0.400000000000000022 MG PO ×2 (08:41→21:18)
[2023-05-12] MEDS: CLARITIN 10 MG PO (08:41)
[2023-05-12] MEDS: PROTONIX 40 MG PO (08:41)
[2023-05-12] MEDS: LYRICA 200 MG PO ×3 (08:41→21:17)
[2023-05-12] MEDS: ZOLOFT 150 MG PO (08:42)
[2023-05-12] MEDS: TEGRETOL 200 MG PO ×2 (09:04→21:17)
[2023-05-12 09:58] VITALS: BP 123/77
[2023-05-12 17:49] VITALS: BP 113/70
[2023-05-12] MEDS: XALATAN OPHTHALMIC SOLUTION 1 DROP OPHTH (19:14)
[2023-05-13] MEDS: ULTRAM 100 MG PO ×4 (00:06→18:32)
[2023-05-13] MEDS: PROTONIX 40 MG PO (07:36)
[2023-05-13] MEDS: ATIVAN 1 MG PO ×3 (07:37→19:57)
[2023-05-13] MEDS: LYRICA 200 MG PO ×3 (07:37→22:30)
[2023-05-13] MEDS: FLOMAX 0.400000000000000022 MG PO ×2 (07:37→19:57)
[2023-05-13] MEDS: TEGRETOL 200 MG PO ×2 (07:37→19:57)
[2023-05-13] MEDS: CLARITIN 10 MG PO (07:38)
[2023-05-13] MEDS: ZOLOFT 150 MG PO (07:38)
[2023-05-13 07:42] VITALS: BP 123/79
--- NOTE | 2023-05-13 16:21 | W.PN.UPDATE ---
Update Note
Progress Note Update
patient seen chart reviewed. discussed w crisis staff and dr jaime. patient remains without alternative vis a vis housing. he had been less than cooperative in the effort to try to recruit family members or friends to help him. he has been declined
by many snf's given his legal hx. he cannot reside in the ER forever but we are running out of alternatives re placement. after discussion with me and ms mariel allen today he does agree to us calling some of the contacts we received from the
fpc . he also agrees to staff arranging a bcm from [facility] that may be able to help. i am not going to dc him on ativan so i did tell him we would start to cut back on the ativan dosage to which he agreed. discussed w marina howe and [place] whether we
had to cut back any of his medical medications in preparation for a possible dc next tuesday and they felt he cold be dc on these meds and scrips sent for him.
--- NOTE | 2023-05-13 19:12 | EDRN ---
pharmacy called for eye drops. pt resting comfortably in bed. report obtained from STEPHIE Vaughan
[2023-05-13] MEDS: XALATAN OPHTHALMIC SOLUTION 1 DROP OPHTH (19:57)
--- NOTE | 2023-05-13 19:59 | EDRN ---
pt medicated per may. given food per request. pt calm and cooperative with this RN.
[2023-05-14] MEDS: ULTRAM PO ×2 (00:05→06:51)
[2023-05-14] MEDS: PROTONIX 40 MG PO (08:00)
[2023-05-14] MEDS: TEGRETOL 200 MG PO ×2 (08:00→19:51)
[2023-05-14] MEDS: FLOMAX 0.400000000000000022 MG PO ×2 (08:00→19:51)
[2023-05-14] MEDS: ZOLOFT 150 MG PO (08:00)
[2023-05-14] MEDS: ATIVAN 1 MG PO ×2 (08:01→19:51)
[2023-05-14] MEDS: LYRICA 200 MG PO ×3 (08:02→22:19)
[2023-05-14] MEDS: CLARITIN 10 MG PO (08:02)
[2023-05-14 08:07] VITALS: BP 128/78
[2023-05-14] MEDS: ULTRAM 100 MG PO ×2 (12:07→18:19)
[2023-05-14] MEDS: XALATAN OPHTHALMIC SOLUTION 1 DROP OPHTH (18:32)
[2023-05-14 19:50] VITALS: BP 112/70
[2023-05-15] MEDS: ULTRAM PO ×2 (00:34→06:10)
[2023-05-15 09:30] VITALS: BP 124/75
[2023-05-15] MEDS: LYRICA 200 MG PO ×3 (09:35→22:15)
[2023-05-15] MEDS: ZOLOFT 150 MG PO (09:36)
[2023-05-15] MEDS: FLOMAX 0.400000000000000022 MG PO ×2 (09:36→20:20)
[2023-05-15] MEDS: ATIVAN 1 MG PO ×2 (09:36→20:20)
[2023-05-15] MEDS: CLARITIN 10 MG PO (09:37)
[2023-05-15] MEDS: PROTONIX 40 MG PO (09:37)
[2023-05-15] MEDS: TEGRETOL 200 MG PO ×2 (09:37→20:21)
--- NOTE | 2023-05-15 09:49 | W.PN.UPDATE ---
Update Note
Progress Note Update
Psychiatry follow up. Chart reviewed. Patient reports difficulty sleeping last night and feeling tired and depressed today. He denies active SI here in the hospital. He presents disheveled and malodorous. He reports tolerating psychiatric
medications well without side effects. He remains without housing but agrees to having a BCM from [facility] that may be able to help.�Will continue Zoloft 150mg daily, Tegretol 200mg BID, Ativan 1mg BID and 0.5mg daily. Plan is to taper off Ativan prior
to discharge.
[2023-05-15] MEDS: ULTRAM 100 MG PO ×2 (12:39→18:16)
[2023-05-15] MEDS: ATIVAN 0.5 MG PO (15:40)
[2023-05-15] MEDS: XALATAN OPHTHALMIC SOLUTION 1 DROP OPHTH (18:17)
[2023-05-15 22:09] VITALS: BP 133/80
[2023-05-16] MEDS: ULTRAM 100 MG PO ×3 (00:48→17:58)
[2023-05-16] MEDS: ULTRAM PO (06:31)
--- NOTE | 2023-05-16 07:37 | ED.CRISIS ---
ED Crisis Note
ED Crisis Note
Subjective:
resting comfortably/ no si. No new complaints
Objective:
Resting comfortably. No respiratory distress.
Assessment/Plan:
Patient initially brought in for suicidal thoughts and depression. Patient seen by crisis and psychiatry and cleared from psychiatry. His depression appears to be situational in regards to chronic back pain and homelessness. financial risk manager involved
and working on short-term placement. Prolonged stay in emergency department. Awaiting disposition
[2023-05-16 08:46] VITALS: BP 111/69
[2023-05-16] MEDS: CLARITIN 10 MG PO (09:05)
[2023-05-16] MEDS: ZOLOFT 150 MG PO (09:05)
[2023-05-16] MEDS: LYRICA 200 MG PO ×3 (09:05→22:12)
[2023-05-16] MEDS: ATIVAN 0.5 MG PO ×2 (09:05→21:02)
[2023-05-16] MEDS: FLOMAX 0.400000000000000022 MG PO ×2 (09:05→21:03)
[2023-05-16] MEDS: PROTONIX 40 MG PO (09:05)
[2023-05-16] MEDS: TEGRETOL 200 MG PO ×2 (09:06→21:02)
[2023-05-16] MEDS: ATIVAN PO (16:56)
[2023-05-16] MEDS: XALATAN OPHTHALMIC SOLUTION 1 DROP OPHTH (18:25)
[2023-05-16 21:00] VITALS: BP 118/72
[2023-05-17] MEDS: ULTRAM 100 MG PO ×4 (00:16→17:43)
[2023-05-17 06:30] VITALS: BP 120/75
[2023-05-17] MEDS: FLOMAX 0.400000000000000022 MG PO ×2 (08:30→20:59)
[2023-05-17] MEDS: ATIVAN 0.5 MG PO ×2 (08:30→21:00)
[2023-05-17] MEDS: PROTONIX 40 MG PO (08:30)
[2023-05-17] MEDS: LYRICA 200 MG PO ×3 (08:31→21:00)
[2023-05-17] MEDS: TEGRETOL 200 MG PO ×2 (08:32→21:00)
[2023-05-17] MEDS: CLARITIN 10 MG PO (08:32)
[2023-05-17] MEDS: ZOLOFT 150 MG PO (08:55)
--- NOTE | 2023-05-17 12:10 | ED.CRISIS ---
ED Crisis Note
ED Crisis Note
Subjective:
Sitting in bed comfortably. Patient offering no complaints to nursing
Objective:
Sitting in bed comfortably. No acute distress
Assessment/Plan:
Will try to taper his benzodiazepine use.
[2023-05-17] MEDS: XALATAN OPHTHALMIC SOLUTION 1 DROP OPHTH (17:44)
[2023-05-18] MEDS: ULTRAM PO (00:05)
[2023-05-18] MEDS: ULTRAM 100 MG PO ×3 (06:31→17:15)
[2023-05-18 06:33] VITALS: BP 125/77
[2023-05-18 09:29] VITALS: BP 139/88
[2023-05-18] MEDS: ATIVAN 0.25 MG PO ×2 (09:36→21:13)
[2023-05-18] MEDS: FLOMAX 0.400000000000000022 MG PO (09:37)
[2023-05-18] MEDS: PROTONIX 40 MG PO (09:37)
[2023-05-18] MEDS: CLARITIN 10 MG PO (09:37)
[2023-05-18] MEDS: TEGRETOL 200 MG PO (09:38)
[2023-05-18] MEDS: ZOLOFT 150 MG PO (09:38)
[2023-05-18] MEDS: LYRICA 200 MG PO ×3 (09:38→21:13)
--- NOTE | 2023-05-18 09:45 | CM ---
Addendum entered by Jessica Walter RN 05/19/23 15:11:
[facility] declined patient due to behavior concerns.
Addendum entered by Jessica Walter RN 05/19/23 14:43:
CM was given contact for [facility]. CM previously sent referral via Care Port. CM spoke with Anup at [facility] to review clinical again.
Addendum entered by Jessica Walter RN 05/18/23 13:26:
Cm spoke with [facility] and set up an appointment for evaluation on 05/24 between 9-11. As per [facility], balancing machine set up worker Shelby Patrick will meet with patient for possible additional community funding. CM will email MD certification to
assist with application process.
CM updated Татьяна Moreno plan.
Original Note:
TEVIN was updated on discharge efforts by Татьяна Moreno, CM director. CM will continue to support [facility]'s efforts.
TEVIN collaborated with Celina Garcia from pharmacy to discuss discharge medication plan. CM will assist with obtaining free medications as needed.
--- NOTE | 2023-05-18 09:54 | W.PN.UPDATE ---
Update Note
Progress Note Update
patient seen chart reviewed. 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
and suicidality. the fdc had made efforts to find a 'home' for him without success and he was brought to crisis given complaint of psychiatric symptoms of depression and suicidality which have since resolved.
history of present illness: patient is a 58 year old male who was admitted to on a 302 petition (no longer on a commitment which has ) alleging he was depressed and suicidal with suicide plan of hanging himself. sleep was not good. he
had difficulty falling and staying asleep however sleep was also impaired by chronic pain from back issues. his energy level was medium to poor again affected by his arthritic back. he was unable to enjoy much at that point and was very anxious
about his future having very few supports in the community. there was nothing to suggest psychosis. patient had been prescribed zoloft in the fdc
past psych hx patient has hx of several hospitalizations for psychiatric reasons. the last was at [facility]. he has taken antidepressants in the past. he did not know which but is currently on zoloft. his out patient followup has been sporadic
medical hx patient has hx spine surgeries and lives with chronic pain. he sometimes is short of breath and he attributes this to his spinal deformity. he can walk but is often in some discomfort and cannot walk long distances. he has hx crohns
and in the past has had gi surgery. hx osteoporosis and foot drop noted in the record. hx gerd bph glaucoma current meds for pain tegretol 200 mg bid lyrica 200 mg tid toradol 100 mg q 6h; for anxiety tapering ativan now o.5 mg bid will dc
in a few days for depression zoloft 150 mg for gerd protonix 40 mg for glaucoma latanoprost for allergies claritin 10 mg q d for prostate tamsulosin 0.4 mg bid vital signs are normal
social history patient has some family locally including a mother but he is not reconciled with them. he is currently homeless. he has a legal hx and was recently in fdc for 22 months for violation of probation. he has been very cooperative
and generally pleasant in the time he has been at
fh non contributory
mse alert ox3 cooperative and pleasant. speech and thought process are normal. mood is neutral affect appropriate. patient denies suicidality.average intelligence. insight judgment in the past month are good
dx unspecified depression
progress and plan: patient's zoloft was increased to a total of 150 mg q day with resolution of depression and si. he had been taking ativan for anxiety which is being tapered and will be dc'ed in a few days. much effort was made by numerous staff
to find a disposition for him but in the absence of MA and the cessation of his Medicare and disability since he was in senior care this proved to be impossible. at this point , he has MA and hopefully this will change. he has been cooperative and
pleasant but clearly given his psych and medical conditions needs further treatment which could be provided in a community living arrangement which is being sought for him.
[2023-05-19] MEDS: ULTRAM 100 MG PO ×4 (00:20→23:18)
[2023-05-19] MEDS: ULTRAM PO (07:36)
[2023-05-19] MEDS: ATIVAN 0.25 MG PO (09:57)
[2023-05-19 10:00] VITALS: BP 144/86
[2023-05-19] MEDS: CLARITIN 10 MG PO (11:27)
[2023-05-19] MEDS: PROTONIX 40 MG PO (11:27)
[2023-05-19] MEDS: LYRICA 200 MG PO ×3 (11:27→23:18)
[2023-05-19] MEDS: FLOMAX 0.400000000000000022 MG PO ×2 (11:27→20:45)
[2023-05-19] MEDS: TEGRETOL 200 MG PO ×2 (11:28→20:45)
[2023-05-19] MEDS: ZOLOFT 150 MG PO (11:28)
[2023-05-19] MEDS: XALATAN OPHTHALMIC SOLUTION 1 DROP OPHTH (19:45)
[2023-05-20] MEDS: ULTRAM PO (04:22)
[2023-05-20 07:11] VITALS: BP 132/88
[2023-05-20] MEDS: PROTONIX 40 MG PO (07:55)
[2023-05-20] MEDS: LYRICA 200 MG PO ×3 (07:55→22:01)
[2023-05-20] MEDS: TEGRETOL 200 MG PO ×2 (07:56→19:45)
[2023-05-20] MEDS: ULTRAM 100 MG PO ×3 (07:56→22:01)
[2023-05-20] MEDS: ZOLOFT 150 MG PO (07:57)
[2023-05-20] MEDS: CLARITIN 10 MG PO (07:57)
[2023-05-20] MEDS: FLOMAX 0.400000000000000022 MG PO ×2 (07:58→19:45)
--- NOTE | 2023-05-20 09:13 | CM ---
Addendum entered by Jessica Walter RN 05/20/23 09:22:
[facility] has declined patient.
Original Note:
CM reviewed medical records. The following SNF facilities have declined patient:
[facility]
[place]
[facility] [place]
[facility]
[place]
[facility]
[place] [place] [place]
[facility]
[place]
[facility]
[place]
[facility]
[place] [place] [facility]
[place]
[facility]
[facility] [place] [facility] [place]
[facility]
--- NOTE | 2023-05-20 10:50 | CM ---
As per [facility], they have secured a bed for patient at [facility] on 05/[facility]. CM provided CM assistance as needed. CM sent PT notes and CHC application information to Yovani Sheehan at [facility]. CM will continue to follow
as needed.
--- NOTE | 2023-05-20 11:11 | ED.CRISIS ---
ED Crisis Note
ED Crisis Note
Assessment/Plan:
Spoke w/ TAZ Lopez - plan for [facility] on Tuesday
[2023-05-20 19:31] VITALS: BP 129/88
[2023-05-20] MEDS: XALATAN OPHTHALMIC SOLUTION 1 DROP OPHTH (19:44)
--- NOTE | 2023-05-20 19:48 | EDRN ---
Charge nurseInés RN, was caring for pt previously while he was in the hallway. Noted 1800 eye drop was not signed off as given. Checked with charge nurse Latoya Rojas RN regarding eye drop and informed STEPHIE Conte asked STEPHIE Bruno who was caring
for [facility] patients to administer 1800 eye drop. This RN confirmed with STEPHIE Bruno that the eye drop was NOT given. 1800 and 1999 medications administered. Pt sitting on side of stretcher eating dinner, states it is cold but declines offer to
heat it.
--- NOTE | 2023-05-20 22:03 | EDRN ---
Pt sitting on side of stretcher reading. Pt given 0 medications. Pt asked where his ativan is. Explained it is not order for him. Pt said 'she was supposed to put it on there.' Discussed with pt that the plan of care was to wean him off
ativan while he is here 'But it's the only thing that works. So what, it's addictive. I don't care. I've gotten off it before.'
[2023-05-21] MEDS: ULTRAM 100 MG PO ×4 (03:56→22:30)
[2023-05-21] MEDS: FLOMAX 0.400000000000000022 MG PO ×2 (09:09→21:06)
[2023-05-21] MEDS: CLARITIN 10 MG PO (09:09)
[2023-05-21] MEDS: ZOLOFT 150 MG PO (09:10)
[2023-05-21] MEDS: PROTONIX 40 MG PO (09:10)
[2023-05-21] MEDS: LYRICA 200 MG PO ×3 (09:11→22:30)
[2023-05-21] MEDS: TEGRETOL 200 MG PO ×2 (09:11→21:06)
[2023-05-21 09:14] VITALS: BP 128/81
--- NOTE | 2023-05-21 09:14 | EDRN ---
this RN received the pt from the previous fire chief's aide RN, this RN entered the pts room and the pt was lying in stretcher in the lowest position, side rails up x1, aguilar at the bedside, HOB slightly elevated, the pt was calm and cooperative with this
RN and allowed this RN to obtain vital signs, VS WNL, no s/s of distress, no c/o chest pain, no c/o SOB, the pt has upper and middle back pain and pt received Tramadol per providers orders, the pt gave this RN his breakfast order and this RN called
and ordered breakfast for the pt, AM medications were administered, the pt is able to ambulate to the bathroom independently with no issues and back to the stretcher, this RN performed suicide assessment and the pt has no thought of suicide
currently, the pt is a mild risk for suicide and this information was communicated to Dr. Ruiz and crisis, the pt is not going to be placed on a one to one per provider due to the pt not having any thoughts or plans to harm himself now, this RN
will continue to monitor the pt closely
--- NOTE | 2023-05-21 09:51 | EDRN ---
the pts breakfast tray was delivered to the pts room, the pt is sitting on the side of the stretcher eating breakfast, no complaints offered, this RN will continue to monitor the pt closely
--- NOTE | 2023-05-21 10:54 | EDRN ---
the pt came up to this RN at the nurses station and handed this RN his order for lunch and stated, 'Here you go i figured i'd help you out a little bit and give you what i wanted for lunch time, thank you', this RN assured the pt that his lunch
would be ordered
--- NOTE | 2023-05-21 11:11 | ED.CRISIS ---
ED Crisis Note
ED Crisis Note
Subjective:
resting comfortably. no new complaints.
Objective:
awake, alert, no resp distress.
Assessment/Plan:
- plan for [facility] on Tuesday
--- NOTE | 2023-05-21 14:25 | EDRN ---
the pt approached this RN at the nurses station and stated to this RN, 'Is there any way that i can get outside today? I just feel like i need some fresh air, if you guys don't mind i'd love to get outside for a little', this RN notified charge
nurse and Raul PCT took the pt outside vis wheel chair and is sitting with the pt in front of the ER, Raul PCT will bring the pt back inside when the pt is ready
--- NOTE | 2023-05-21 15:00 | EDRN ---
the pt was brought back in ER via wheel chair, the pt is now resting in stretcher in the lowest position, side rails up x1, HOB slightly elevated, the pt is eating the rest of his lunch from earlier, no s/s of distress, no c/o pain, the pt denies
needing anything currently, will continue to monitor the pt closely
[2023-05-21] MEDS: XALATAN OPHTHALMIC SOLUTION 1 DROP OPHTH (18:35)
[2023-05-21 22:00] VITALS: BP 120/80
[2023-05-22] MEDS: ULTRAM PO (06:21)
[2023-05-22] MEDS: ULTRAM 100 MG PO ×3 (08:13→22:21)
[2023-05-22] MEDS: CLARITIN 10 MG PO (08:14)
[2023-05-22] MEDS: PROTONIX 40 MG PO (08:15)
[2023-05-22] MEDS: FLOMAX 0.400000000000000022 MG PO ×2 (08:15→20:44)
[2023-05-22] MEDS: LYRICA 200 MG PO ×3 (08:15→22:21)
[2023-05-22] MEDS: ZOLOFT 150 MG PO (08:16)
[2023-05-22] MEDS: TEGRETOL 200 MG PO ×2 (08:24→20:44)
[2023-05-22 09:53] VITALS: BP 121/74
[2023-05-22] MEDS: XALATAN OPHTHALMIC SOLUTION 1 DROP OPHTH (20:44)
[2023-05-22 20:54] VITALS: BP 137/86
[2023-05-23] MEDS: ULTRAM PO (04:03)
[2023-05-23 04:06] VITALS: BP 118/69
[2023-05-23] MEDS: ULTRAM 100 MG PO ×4 (04:15→22:22)
[2023-05-23] MEDS: PROTONIX 40 MG PO (08:06)
[2023-05-23] MEDS: CLARITIN 10 MG PO (08:06)
[2023-05-23] MEDS: FLOMAX 0.400000000000000022 MG PO ×2 (08:07→20:27)
[2023-05-23] MEDS: LYRICA 200 MG PO ×3 (08:07→22:22)
[2023-05-23] MEDS: TEGRETOL 200 MG PO ×2 (08:07→20:27)
[2023-05-23] MEDS: ZOLOFT 150 MG PO (08:08)
[2023-05-23 08:09] VITALS: BP 157/87
--- NOTE | 2023-05-23 09:27 | ED.CRISIS ---
ED Crisis Note
ED Crisis Note
Subjective:
No acute overnight events per nursing
Objective:
Sitting in bed comfortably and eating breakfast
Assessment/Plan:
- plan for [facility] on Tuesday
[2023-05-23 10:01] LABS: COVID-19 Antigen Negative (Negative)
--- NOTE | 2023-05-23 10:08 | CM ---
Addendum entered by Jessica Walter RN 05/23/23 14:20:
Cm received approval from Destiny Bernstein at the [employer] to assist with funding 7 days of patient's medications.
CM called [facility] in [place] to confirm if patient's Medicaid number can be use to assist with funding his on going medications. [facility] confirmed that it is active for medication prescriptions.
Addendum entered by Jessica Walter RN 05/23/23 13:25:
CM left message for [facility] to confirm payment for 7 days of patient's non-psychiatric medications.
Original Note:
CM received reminder phone call from [facility] regarding patient's intake appointment. CM forwarded rescheduling information to Yovani Sheehan, Director [facility].
CM spoke with crisis regarding medications. They are going to confirm what assistance is needed regarding patient's initial medications. CM will remain available as needed.
--- NOTE | 2023-05-23 14:08 | ED.GENMED ---
History of Present Illness
General
Chief Complaint: Social Service Referral
Time Seen by Provider: 04/20/23 12:37
Travel History
Have you had any contact with someone who has COVID-19?: No
Do you have any symptoms of coronavirus? Fever > 100 degrees, chills, cough, shortness of breath, sore throat, loss of taste or smell, muscle aches, or headache?: No
History of Present Illness
History of Present Illness:
.
Past History
Past History
ED Past Medical History: Psychiatric, Other (Lumbar epidural abscess February 2015, avascular necrosis of the hips, perianal fistula, osteoporosis, gluteal fistula) and Other (Crohn's disease, chronic back pain on the left foot drop, narcotic
dependent. Opiate use disorder.)
ED Past Surgical History: Bowel resection (X2 for Crohn's), Orthopedic (hip replacement, lumbar epidural abscess evacuation with discectomy T10-L3.) and Other (fistula surgery)
Social History
Tobacco: Former smoker
Alcohol: None
Drug: None
Personal: Single
Living: with family
Employment: Disabled
Family History
Family History: Other (Father with lung cancer)
Phy Exam
Physical Exam
Physical Exam:
.
Course
Orders/Labs/Results
Orders:
Orders
04/20/23 12:17
Case Management Consult ONCE
Case Management Consult: Suicide Risk
04/20/23 13:01
Urine Drug Abuse Screen Urgent
Date Specimen was Collected: 04/20/23
Time Specimen was Collected: 12:21
04/20/23 13:09
Pregabalin [Lyrica] 200 mg PO NOW STA
04/20/23 13:10
Crisis Consult Urgent
Reason for Consult: suicidal thoughts
04/20/23 14:28
Alcohol Urgent
COVID-19 Antigen Urgent
Source: Nasal Swab
Complete Blood Count/With Diff Urgent
Comprehensive Metabolic Panel Urgent
04/20/23 14:30
Lorazepam [Ativan] 1 mg PO Q8HPRN PRN
04/20/23 18:00
Latanoprost [Xalatan Ophthalmic Solution] See Dose Instructions OPHTH QPM
04/20/23 20:00
Carbamazepine [Tegretol] 200 mg PO BID
Tamsulosin [Flomax] 0.4 mg PO BID
04/20/23 22:00
Pregabalin [Lyrica] 200 mg PO TID
04/20/23 22:28
Tramadol HCl [Ultram] 50 mg PO NOW STA
04/21/23 08:00
Loratadine [Claritin] 10 mg PO DAILY
Pantoprazole [Protonix] 40 mg PO DAILY
Sertraline HCl [Zoloft] 150 mg PO DAILY
Sertraline HCl [Zoloft] 50 mg PO DAILY
04/21/23 17:41
Tramadol HCl [Ultram] 50 mg PO NOW STA
04/21/23 21:08
Sodium Chloride [Blaine, Saline Mist] 2 sprays NASAL QIDPRN PRN
04/22/23 13:46
Tramadol HCl [Ultram] 100 mg PO Q6HPRN PRN
04/22/23 16:00
Lorazepam [Ativan] 1 mg PO TID
04/23/23 05:52
Tegretol (Carbamazepine) IN AM
04/24/23 09:34
Lorazepam [Ativan] 1 mg .ROUTE .STK-MED ONE
04/24/23 09:36
Lorazepam [Ativan] 1 mg PO NOW STA
04/24/23 14:13
Lorazepam [Ativan] 1 mg PO NOW STA
04/24/23 23:10
Oxycodone [Roxicodone] 5 mg PO NOW STA
04/25/23 09:00
Mag Hydrox/Al Hydrox/Simeth [Maalox] 30 ml Phenobarb/Hyoscy/Atropine/Scop [] 10 ml PO NOW
04/25/23 09:01
Mag Hydrox/Al Hydrox/Simeth [Maalox] 30 ml .ROUTE .STK-MED ONE
Phenobarb/Hyoscy/Atropine/Scop [] 10 ml .ROUTE .STK-MED ONE
04/25/23 19:00
Tramadol HCl [Ultram] 100 mg PO Q6H
04/25/23 22:00
Tramadol HCl [Ultram] 100 mg PO TID
04/26/23 01:24
Lorazepam [Ativan] 1 mg PO NOW STA
04/26/23 09:47
Mag Hydrox/Al Hydrox/Simeth [Maalox] 30 ml Phenobarb/Hyoscy/Atropine/Scop [] 10 ml PO NOW
04/26/23 09:49
Mag Hydrox/Al Hydrox/Simeth [Maalox] 30 ml .ROUTE .STK-MED ONE
Phenobarb/Hyoscy/Atropine/Scop [] 10 ml .ROUTE .STK-MED ONE
04/27/23 09:48
Phenobarb/Hyoscy/Atropine/Scop [] 10 ml .ROUTE .STK-MED ONE
Viscous Lidocaine 2% [Xylocaine Viscous Cup] 15 ml .ROUTE .STK-MED ONE
04/27/23 09:49
Mag Hydrox/Al Hydrox/Simeth [Maalox] 30 ml .ROUTE .STK-MED ONE
04/27/23 09:52
Mag Hydrox/Al Hydrox/Simeth [Maalox] 30 ml Phenobarb/Hyoscy/Atropine/Scop [] 10 ml Viscous Lidocaine 2% [Xylocaine Viscous Cup] 10 ml PO NOW
04/27/23 14:49
Case Management Consult ONCE
Case Management Consult: Discharge Planning
PT Consult [Pt Eval And Treat] Urgent
Activity Level: Out of Bed-Early Mobility
04/27/23 17:10
Mag Hydrox/Al Hydrox/Simeth [Maalox] 30 ml .ROUTE .STK-MED ONE
Phenobarb/Hyoscy/Atropine/Scop [] 10 ml .ROUTE .STK-MED ONE
04/27/23 17:12
Viscous Lidocaine 2% [Xylocaine Viscous Cup] 15 ml .ROUTE .STK-MED ONE
04/27/23 17:16
Mag Hydrox/Al Hydrox/Simeth [Maalox] 30 ml Phenobarb/Hyoscy/Atropine/Scop [] 10 ml Viscous Lidocaine 2% [Xylocaine Viscous Cup] 10 ml PO NOW
04/30/23 00:30
Lorazepam [Ativan] 1 mg PO NOW STA
04/30/23 20:23
Melatonin 5 mg PO NOW STA
05/01/23 21:34
Melatonin 5 mg PO NOW STA
05/02/23 18:15
Lorazepam [Ativan] 2 mg .ROUTE .STK-MED ONE
05/02/23 18:18
Lorazepam [Ativan] 2 mg PO NOW STA
05/02/23 22:13
Melatonin 5 mg PO NOW STA
05/04/23 16:33
Diazepam [Valium] 5 mg PO NOW STA
Oxycodone/Acetaminophen [Percocet 5/325] 1 tablet PO NOW STA
05/04/23 16:38
Oxycodone/Acetaminophen [Percocet 5/325] 1 tablet .ROUTE .STK-MED ONE
05/08/23 07:16
Tramadol HCl [Ultram] 50 mg .ROUTE .STK-MED ONE
05/10/23 05:09
Lorazepam [Ativan] 1 mg PO NOW STA
05/12/23 13:30
Tramadol HCl [Ultram] 100 mg PO ONCE ONE
05/12/23 19:00
Tramadol HCl [Ultram] 100 mg PO Q6
05/13/23 20:00
Lorazepam [Ativan] 1 mg PO BID
05/14/23 08:00
Lorazepam [Ativan] 0.5 mg PO DAILY
05/15/23 15:00
Lorazepam [Ativan] 0.5 mg PO DAILY@1400
05/16/23 08:00
Lorazepam [Ativan] 0.5 mg PO BID
05/17/23 16:00
Lorazepam [Ativan] 0.5 mg PO TID
05/17/23 20:00
Lorazepam [Ativan] 0.5 mg PO ONCE@2000 ONE
05/18/23 08:00
Lorazepam [Ativan] 0.25 mg PO BID
05/19/23 10:00
Tramadol HCl [Ultram] 100 mg PO Q6H
05/19/23 10:30
Pregabalin [Lyrica] 200 mg PO TID
05/19/23 11:00
Carbamazepine [Tegretol] 200 mg PO BID
Loratadine [Claritin] 10 mg PO DAILY
Pantoprazole [Protonix] 40 mg PO DAILY
Sertraline HCl [Zoloft] 150 mg PO DAILY
Tamsulosin [Flomax] 0.4 mg PO BID
05/19/23 18:00
Latanoprost [Xalatan Ophthalmic Solution] See Dose Instructions OPHTH QPM
05/21/23 16:51
Pregabalin [Lyrica] 100 mg .ROUTE .STK-MED ONE
05/21/23 16:53
Tramadol HCl [Ultram] 50 mg .ROUTE .STK-MED ONE
05/23/23 09:24
COVID-19 Antigen Routine
Source: Nasal Swab
05/23/23 15:39
Tramadol HCl [Ultram] 50 mg .ROUTE .STK-MED ONE
05/23/23 15:42
Pregabalin [Lyrica] 100 mg .ROUTE .STK-MED ONE
05/24/23 00:00
Latanoprost [Xalatan Ophthalmic Solution] 1 drop RIGHT EYE QPM
Loratadine [Claritin] 10 mg PO DAILY
Pantoprazole [Protonix] 40 mg PO DAILY
Pregabalin [Lyrica] 200 mg PO TID
Tamsulosin [Flomax] 0.4 mg PO BID
Tramadol HCl [Ultram] 100 mg PO Q6
Abnormal Lab Results
04/20/23
14:28
RBC 4.56 L 10^6/uL
(4.70-6.10)
Hct 37.8 L %
(39.0-52.0)
MPV 10.6 H fL
(7.4-10.4)
Absolute Lymphs (auto) 1.1 L 10^3/uL
(1.2-3.4)
Glucose 102 H mg/dl
(70-99)
04/20/23 14:28
04/20/23 14:28
Vital Signs
Initial and Last Documented VS:
Initial Vital Signs
Temp Pulse Resp BP Pulse Ox
98.0 F 66 16 179/100 99
04/20/23 12:18 04/20/23 12:18 04/20/23 12:18 04/20/23 12:18 04/20/23 12:18
Last Documented Vital Signs
Temp Pulse Resp BP Pulse Ox
97.7 F 61 15 138/81 97
05/24/23 07:09 05/24/23 07:09 05/24/23 07:09 05/24/23 07:09 05/24/23 07:09
*Critical Care Note
Total Time (30-74mins, 75-104mins- exclusive of procedures): Not Applicable
Update Note
Update Note:
221 pm 324....I wrote (as asked) rx for 7 day and 30 day supply for all of pts meds except [address] Cordero will write for. This required 2 narcotic scripts from [facility], provided by Callie Hamilton and in coordination with pharmacy dept.
ED Attending Note
-
Portions of this chart may have been created with voice recognition software.� Occasional wrong word or��sound alike� substitutions may have occurred due to the inherent limitations of voice recognition software.
Discharge Plan
Departure
Patient Disposition: Psych Facility
Date of Disposition: 04/20/23
Time of Disposition: 16:08
Patient Status:: 302
Patient with high blood pressure during this ER visit?: Yes
Condition: Critical
Covid-19: Not Applicable
Discharge Problem:
Suicidal ideations
Prescriptions:
New
latanoprost 0.005 % drops
1 drp ophthalmic (eye) QPM Qty: 7.5 0RF
loratadine 10 mg tablet
10 mg PO DAILY Qty: 30 0RF
pantoprazole 40 mg tablet,delayed release (DR/EC)
40 mg PO DAILY Qty: 30 0RF
pregabalin [Lyrica] 200 mg capsule
200 mg PO TID Qty: 90 0RF
tamsulosin 0.4 mg capsule
0.4 mg PO BID Qty: 60 0RF
tramadol 100 mg tablet
100 mg PO Q6H Qty: 120 0RF
No Action
latanoprost 0.005 % Drops
1 drp RIGHT EYE QPM
Patient Comments:
05/19/2023, taken from Dr. Metz's update note from 05/18/2023 and MAR.
carbamazepine [Tegretol] 200 mg Tablet
200 mg PO BID@0800,2000
Patient Comments:
05/19/2023, taken from Dr. Metz's update note from 05/18/2023 and MAR.
loratadine 10 mg Tablet
10 mg PO DAILY
Patient Comments:
05/19/2023, taken from Dr. Metz's update note from 05/18/2023 and MAY.
tamsulosin 0.4 MG capsule
0.4 mg PO BID@0800,2000
Patient Comments:
05/19/2023, taken from Dr. Metz's update note from 05/18/2023 and MAY.
pantoprazole 40 mg Tablet,Delayed Release (/Ec)
40 mg PO DAILY
Patient Comments:
05/19/2023, taken from Dr. Metz's update note from 05/18/2023 and MAR.
tramadol 50 mg Tablet
100 mg PO Q6H@0400,10,16,22
Patient Comments:
05/19/2023, taken from Dr. Metz's update note from 05/18/2023 and MAY.
sertraline 50 mg Tablet
150 mg PO DAILY
Patient Comments:
05/19/2023, taken from Dr. Metz's update note from 05/18/2023 and MAR.
Saline Mist 0.65 % Aerosol,[place]
2 spray INTRANASAL QID PRN (Reason: congestion)
Patient Comments:
05/19/2023, on pt.'s MAR.
pregabalin [Lyrica] 100 mg Capsule
200 mg PO TID@0800,1600,2200
Patient Comments:
05/19/2023, taken from Dr. Metz's update note from 05/18/2023 and MAY.
Referrals:
[facility] [[facility]] -
Interventions
Interventions:
*Risk Screen - Suicide Last Done: 05/21/23 09:14
*General Assessment Last Done: 04/20/23 12:14
*Neglect/Abuse Screening Last Done: 04/20/23 12:14
ED- Fall Risk Assessment Last Done: 05/18/23 09:51
*ED COVID-19 Vaccine History Last Done: 04/20/23 12:14
*Nursing Disposition Last Done: 05/24/23 10:13
ED-Psychological Assessment Last Done: 05/21/23 09:14
Discharge Date and Time
Discharge Date/Time: 05/24/23 10:14
--- NOTE | 2023-05-23 17:10 | EDRN ---
Mr Art has received his belongings which where in the security office. 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 Pt provided with boxes to pack up prior to his discharge tomorrow. Rx written for medications upon
discharge.
[2023-05-23] MEDS: XALATAN OPHTHALMIC SOLUTION 1 DROP OPHTH (19:24)
[2023-05-23 22:28] VITALS: BP 138/83
[2023-05-24] MEDS: ULTRAM PO (04:52)
[2023-05-24 07:09] VITALS: BP 138/81
--- NOTE | 2023-05-24 07:42 | EDRN ---
VO Dr Alexander, may give Tramadol at 0800 instead 1000 as pt did not receive 0400 dose
[2023-05-24] MEDS: CLARITIN 10 MG PO (08:06)
[2023-05-24] MEDS: PROTONIX 40 MG PO (08:06)
[2023-05-24] MEDS: ULTRAM 100 MG PO (08:06)
[2023-05-24] MEDS: FLOMAX 0.400000000000000022 MG PO (08:06)
[2023-05-24] MEDS: LYRICA 200 MG PO (08:07)
[2023-05-24] MEDS: ZOLOFT 150 MG PO (08:07)
[2023-05-24] MEDS: TEGRETOL 200 MG PO (08:08)
--- NOTE | 2023-05-24 10:01 | CM ---
TEVIN updated Destiny Bernstein with the [employer] with final cost of medications totalling 24.15,
== END 2023-05-24 10:14 ==
LOC: EMR 12:11
PROVIDERS: Emergency Medicine; EMERGENCY PHYSICIAN Emergency Medicine; OTHER PHYSICIAN Psychiatry & Neurology Psychiatry
DX: R45.851 Suicidal ideations (principal); F32.A Depression, unspecified; M79.672 Pain in left foot; M79.671 Pain in right foot; M25.551 Pain in right hip; M54.9 Dorsalgia, unspecified; Z11.52 Encounter for screening for COVID-19; R03.0 Elevated blood-pressure reading, without diagnosis of hypertension; G62.9 Polyneuropathy, unspecified; G89.29 Other chronic pain; M81.0 Age-related osteoporosis without current pathological fracture; K50.90 Crohn's disease, unspecified, without complications; Z98.0 Intestinal bypass and anastomosis status; Z91.51 Personal history of suicidal behavior; Z87.891 Personal history of nicotine dependence; Z90.01 Acquired absence of eye; Z88.6 Allergy status to analgesic agent; Z91.041 Radiographic dye allergy status; Z88.7 Allergy status to serum and vaccine; Z88.8 Allergy status to other drugs, medicaments and biological substances; Z91.048 Other nonmedicinal substance allergy status
CPT/HCPCS: 80053; 80156; 80306; 82077; 85025; 87811; 99285